=== PATIENT | female | born 1965 | race Caucasian/White ===

== ENCOUNTER 2022-06-03 18:19 | Emergency (ER) | payer OTHER ==
[~2022-06-03] VITALS: Ht 175.3 cm; Wt 95.3 kg
[2022-06-03] MEDS ORDERED: HYDRALAZINE HCL 20 MG/ML VIAL IV STA ×2 (18:45→19:54)
[2022-06-03] MEDS ORDERED: SODIUM CHLORIDE FLUSH 10 ML SYR IV PRN (18:45)
[2022-06-03] MEDS ORDERED: ASPIRIN 325 MG TAB PO ONE (18:45)
[2022-06-03 18:53] LABS: BASOPHILS % 0.6 % (0.0-1.0); EOSINOPHILS # (AUTO) 0.1 (0.0-0.4); EOSINOPHILS % 2.1 % (0.0-6.0); HEMOGLOBIN 10.4 g/dL (12.0-16.0); LYMPHOCYTES # (AUTO) 1.7 (1.0-3.2); LYMPHOCYTES % 26.7 % (18.0-39.1); MEAN CORPUSCULAR HEMOGLOBIN 30.1 pg (28-32); MEAN CORPUSCULAR HGB CONC 30.6 g/dL (31-35); MEAN CORPUSCULAR VOLUME 98.3 fL (81-99); MONOCYTES # (AUTO) 0.5 (0.2-0.8); MONOCYTES % 8.1 % (4.4-11.3); NEUTROPHILS # (AUTO) 3.9 (2.1-6.9); NEUTROPHILS % 62.3 % (38.7-80.0); PLATELET COUNT 185 x10e3/uL (140-360); RED BLOOD COUNT 3.46 x10e6/uL (3.6-5.1); RED CELL DISTRIBUTION WIDTH 12.4 % (11.7-14.4)
[2022-06-03 19:03] LABS: INR 0.87; PROTHROMBIN TIME 12.6 seconds (11.9-14.5)
[2022-06-03 19:12] LABS: ALBUMIN 3.7 g/dL (3.5-5.0); ALBUMIN/GLOBULIN RATIO 1.1 (0.8-2.0); ANION GAP 11.4 mmol/L (8-16); CALCIUM 8.7 mg/dL (8.4-10.2); CREATININE, SERUM 0.82 mg/dL (0.57-1.11); POTASSIUM 3.4 mmol/L (3.5-5.1)
[2022-06-03 19:59] LABS: AMPHETAMINES SCREEN,URINE NEGATIVE (NEGATIVE); BENZODIAZEPINES SCREEN,URINE NEGATIVE (NEGATIVE); PHENCYCLIDINE SCREEN,URINE NEGATIVE (NEGATIVE)
[2022-06-03] MEDS ORDERED: POTASSIUM CHLORIDE 20 MEQ TAB CR PO STA (20:17)
[2022-06-03] MEDS ORDERED: FERROUS SULFAT325 MG PO (20:35)
[2022-06-03 20:47] VITALS: BP 184/88
== END 2022-06-03 20:49 | disposition home or self-care (01) ==
LOC: ER 18:25
DX: I10 Essential (primary) hypertension (principal); D64.9 Anemia, unspecified
CPT/HCPCS: 36415; 71045; 80053; 80307; 84484; 85025; 85610; 85730; 93005; 94760; 99284; J0360